=== PATIENT | male | born 1955 | race Hispanic/Latino ===

== ENCOUNTER 2018-09-22 19:58 | Emergency (ER) | payer MEDICARE ==
[2018-09-22 20:10] VITALS: BP 144/92; PULSE 86; RESP 18; TEMP 98.1; O2SAT 99
--- NOTE | 2018-09-22 20:29 | ED PDOC ---
HPI: Male Pain Time Seen by Provider: 09/22/18 20:12 Chief Complaint (Nursing): Male Genitourinary Chief Complaint (Provider): catheter eval History Per: Patient History/Exam Limitations: no limitations Onset/Duration Of Symptoms: Hrs Additional Complaint(s): 63 y/o male presents for catheter evaluation. Patient states he had laser surgery on his prostate yesterday and they inserted a sauceda catheter with instructions to remove it once urine was clear in his leg bag. Patient states today he strained to have a bowel movement on the toilet and feels as if the catheter dislodged but then he pushed it back in. Denies fever, nausea/vomiting, abdominal pain/distention, penile pain/bleeding, dysuria, hematuria. Urologist: [facility] Past Medical History Reviewed: Historical Data, Nursing Documentation, Vital Signs Vital Signs: Last Vital Signs Temp 98.1 F 09/22/18 20:06 Pulse 86 09/22/18 20:06 Resp 18 09/22/18 20:06 BP 144/92 H 09/22/18 20:06 Pulse Ox 99 09/22/18 20:06 - Medical History PMH: Anxiety, Deep Vein Thrombosis (bilateral), Hypothyroidism - Surgical History Surgical History: Appendectomy, Hernia Repair - Family History Family History: States: No Known Family Hx - Allergies Allergies/Adverse Reactions: Allergies Allergy/AdvReac Type Severity Reaction Status Date / Time Penicillins Allergy ANAPHYLAXIS Verified 09/22/18 20:06 Review of Systems ROS Statement: Except As Marked, All Systems Reviewed And Found Negative Physical Exam - Reviewed Nursing Documentation Reviewed: Yes Vital Signs Reviewed: Yes - Physical Exam Appears: Positive for: Well, Non-toxic, No Acute Distress Head Exam: Positive for: ATRAUMATIC, NORMAL INSPECTION, NORMOCEPHALIC Skin: Positive for: Normal Color Eye Exam: Positive for: Normal appearance ENT: Positive for: Normal ENT Inspection Cardiovascular/Chest: Positive for: Regular Rate, Rhythm Respiratory: Positive for: Normal Breath Sounds Gastrointestinal/Abdominal: Positive for: Normal Exam, Bowel Sounds, Soft. Negative for: Tenderness, Distended Male Genital Exam: Positive for: other (leg bag full with yellow urine) Back: Positive for: Normal Inspection Extremity: Positive for: Normal ROM Neurologic/Psych: Positive for: Alert, Oriented (x3) - ECG O2 Sat by Pulse Oximetry: 99 - Progress ED Course And Treament: leg bag emptied. Will give patient water and observe for urine to fill in bag On re-eval, 500cc in urine bag; not clear yet Patient given reassurance, advised to follow up with Urologist as scheduled and for sauceda removal as instructed by Urologist Return precautions given Disposition - Clinical Impression Clinical Impression: Sauceda catheter in place - Patient ED Disposition Is Patient to be Admitted: No Counseled Patient/Family Regarding: Diagnosis, Need For Followup - Disposition Disposition: Routine/Home Disposition Time: 21:17 Condition: GOOD Instructions: How to Care for Your Sauceda Catheter, Male Forms: [facility] (Faroese)
== END 2018-09-22 22:10 | disposition home or self-care (01) ==
LOC: H.ER 19:58
DX: Z46.6 Encounter for fitting and adjustment of urinary device (principal); E03.9 Hypothyroidism, unspecified; F41.9 Anxiety disorder, unspecified; Z86.718 Personal history of other venous thrombosis and embolism; Z88.0 Allergy status to penicillin